=== PATIENT | female | born 1940 | race Caucasian/White ===

== ENCOUNTER 2016-12-14 00:45 | Day surgery (SDC) | payer MEDICARE, OTHER ==
[2016-12-14] VITALS (14 sets, daily range): BP systolic 111–166; BP diastolic 63–84; PULSE 72–81; RESP 12–22; O2SAT 93–100
[~2016-12-14] VITALS: Ht 170.2 cm; Wt 75.0 kg
[~2016-12-14 00:45] MED LIST: CYA1000I IM; HYDR25TA4 PO; KEN25CR EXT; LACT1CAP65 PO; LISI10TA2 PO; SCOP1PAT TD
[2016-12-14] MEDS ORDERED: 0.9% Sodium Chloride 1,000 ML IV SCH (06:00)
[2016-12-14] MEDS ORDERED: CeFAZolin Inj 2 GM in IV Premix 1 EACH IV SCH (06:00)
[2016-12-14 06:31] LABS: BASOPHILS % (AUTO) 1.4 % (0-3); EOSINOPHILS % (AUTO) 2.9 % (0-5); MONOCYTES % (AUTO) 11.8 % (4-12); Mean Corpuscular Hemoglobin 30.9 pg (27.0-35.0); Mean Corpuscular Volume 93.7 fL (81-100); NEUTROPHILS % (AUTO) 70.9 % (40-74); Platelet Count 357 bil/L (150-400)
[2016-12-14 07:00] LABS: INR 0.99 ratio
[2016-12-14] MEDS ORDERED: ALBU8.5H2 INHALATION (07:03)
[2016-12-14] MEDS ORDERED: METO25TA99 PO (07:03)
[2016-12-14] MEDS ORDERED: Heparin 10,000 Unit/1,000 mL NS Premix IV ONE (07:45)
[2016-12-14] MEDS ORDERED: Bupivacaine-MPF 0.5% 30 mL Inj ONE (07:45)
[2016-12-14] MEDS ORDERED: 0.9% Sodium Chloride 250 ML ONE ×2 (07:45→16:31)
[2016-12-14] MEDS ORDERED: KCl 40 mEq/500 mL D5W(K 3 - 3.7 & Creat < 2) IV ONE (08:10)
[2016-12-14] MEDS ORDERED: fentaNYL-PF 50 mCg/mL 2 mL Inj ONE ×3 (08:14→09:29)
[2016-12-14] MEDS: 0.9% Sodium Chloride 1,000 ML IV SCH ×2 (10:07→20:07)
--- NOTE | 2016-12-14 11:03 | OP ---
[address] [address] OPERATIVE REPORT PATIENT: KIARA MEJÍA : 1940 MR#: [id number] ADMIT: 12/14/2016 JOB ID: [id number] DATE OF SURGERY: 12/13/2016 PREOPERATIVE DIAGNOSIS(ES): 1. Mobitz II atrioventricular block. 2. Syncope. 3. Implantable loop recorder in place. POSTOPERATIVE DIAGNOSIS(ES): 1. Mobitz II AV block. 2. Syncope. 3. Implantable loop recorder in place. PROCEDURES PERFORMED: 1. Dual-chamber pacemaker implantation. 2. Cardiac loop recorder explantation. 3. Fluoroscopy. SURGEON: Mike Dias MD STRATEGIC ACCOUNT EXECUTIVE: IMPLANTED DEVICE: 1. [employer] pulse generator, model , serial number [id number]. 2. Right atrial lead [employer], [id number] 46 cm, serial number [id number]. 3. RV lead [employer], [id number] 52 cm, serial number [id number]. ANESTHESIA: Bolus dosing of Versed and fentanyl were utilized for an appropriate level of sedation. INDICATION: The patient is a pleasant 76-year-old woman with a structurally normal heart, had recurrent syncope and ultimately a loop recorder was implanted. A recent repeat episode of syncope was identified to be due to intermittent heart block. After discussion of risks and benefits of pacemaker implantation, she opted to proceed. PROCEDURAL DESCRIPTION: Following informed consent, the patient was taken to the EP laboratory in a fasting nonsedated state, where she was prepped and draped in the usual sterile fashion. The left infraclavicular region was infiltrated with 40 cc of a 50/50 mixture of bupivacaine and lidocaine. Once adequate anesthesia had been achieved, a 3 cm transverse incision was performed 2 cm below the clavicle. Dissection was carried down to the pectoralis fascia. The pocket was then fashioned using a combination of electrocautery and blunt dissection. Once adequate hemostasis had been achieved, access to the left axillary vein first two 0.035, 3 mm J guidewires. Over the first of these, an 8-[place]eg[place]e tear-away sheath was advanced. Once the guidewire was removed, active fixation lead was advanced to the RV outflow tract and ultimately the RV apex. The lead was affixed in position using associated fixation screw and was connected to the external analyzer and demonstrated appropriately sensed R waves, impedance and capture threshold. The lead was checked to 10 V and there was no evidence of diaphragmatic stimulation. Attention was now paid to placement of the right atrial lead. Over the other previously deployed J guidewire, another 8-[place] tear-away sheath was advanced. Once the guidewire was removed, an active fixation lead was inserted to atrial appendage. Mapping was undertaken in the appendage and ultimately positioned in the right lateral low right atrium was needed for adequate sensing and threshold. The lead was fixed in position using its associated active fixation screw and was connected to the external analyzer and demonstrated appropriately sensed P waves, impedance, capture threshold. Lead was checked to 10 V and there was no evidence of diaphragmatic stimulation. Once the position and redundancy of both leads confirmed on multiple fluoroscopic views, the leads were anchored to the prepectoralis fascia using their associated anchoring sleeves and 2-0 Ethibond sutures. The pocket was copiously irrigated with antibiotic solution. The leads were connected to a generator. The generator was placed in the pocket and was affixed to the floor of the pocket using 1-0 Ti-Cron suture. The incision was closed with running layers of absorbable suture. The wound was then dressed with skin adhesive and a small dressing at the end of procedure. The needle, sponge, and instrument counts were all correct. I then infiltrated the region overlying the loop recorder which was a small link loop recorder, made a small 0.5 cm incision and was able to free loose scar tissue and externalize and explant the loop recorder with manual pressure hemostasis. COMPLICATIONS: None. ESTIMATED BLOOD LOSS: Negligible. DEVICE MEASURED DATA: 1. Right atrial lead greater than 5 mV, 0.75 V at 0.4 msec, 530 ohms. 2. RV lead greater than 12 mV, 0.5 V at 0.4 msec, 740 ohms. FINAL PROGRAM PARAMETERS: DDD 60-130 beats per minute with VIP on. IMPRESSION: Successful dual-chamber pacemaker implantation and loop recorder explantation. PLAN: 1. Stat portable chest x-ray. 2. PA and lateral chest x-ray in the morning. 3. Device interrogation in the morning. 4. IV Ancef through tomorrow 7 days. 5. Wound check in one week. ATTENDING STATEMENT: IMike MD, electrophysiology attending, was present for and supervised/performed all aspects of this procedure.
--- NOTE | 2016-12-14 11:30 | DRSVH ---
PROCEDURE: X-RAY CHEST ONE VIEW, PORTABLE ([id number]) INDICATIONS: For new leads placed TECHNIQUE: One view of the chest was acquired. COMPARISON: None. FINDINGS: Surgical changes and devices: Left-sided cardiac pacer. Lungs and pleura: No pleural effusions or pneumothorax. Lungs are clear. Mediastinum: Mediastinal contours appear normal. Heart size is normal. Bones and chest wall: No suspicious bony lesions. Overlying soft tissues appear unremarkable. IMPRESSION: Dual-lead left-sided cardiac pacer with expected position of pacer leads. No radiographic evidence of acute cardiopulmonary pathology. Dictated by: Kyle Joe M.D. on 12/14/2016 at 11:26 Approved by: Kyle Joe M.D. on 12/14/2016 at 11:29
--- NOTE | 2016-12-14 11:55 | NUR ---
Patient c/o right sternal border ache radiating to right clavicle and right neck. Dr Dias notified and order obtained for limited echocardiogram.
[2016-12-14] MEDS: HYDROcodone-APAP 5-325 mg Tablet PO PRN ×3 (12:32→21:03)
--- NOTE | 2016-12-14 12:33 | NUR ---
Gaurav Carrera has interrogated patient's pacemaker and present during stat echo. Pacemaker function is appropriate and echo is negative for effusion.He has communicated that to Dr. Dias.Vicodin 2 tabs given fro pain.
--- NOTE | 2016-12-14 13:03 | DRSVH ---
[facility] [address] [place] [address] Echocardiogram Report Name: KIARA MEJÍA Date : 12/14/2016 Height: 67 in Hospital Exam Location: [facility] Weight: 165 lb Gender: Other BSA: 1.9 m2 : 1940 Age: 76 yrs BP: 134/68 mmHg Reason For Study: R/O PERICARDIAL EFFUSION Ordering Physician: Performed By: Wang Guadarrama Interpretation Summary The left ventricle is grossly normal size and systolic function is probably normal. The right ventricle grossly appears normal in size with probable normal systolic function. There is no pericardial effusion. The IVC is normal and suggests a low right atrial pressure of 3 mm Hg. Procedure: A two-dimensional transthoracic echocardiogram with color flow and Doppler was performed in limited views only. The study quality was technically adequate. There is no prior echocardiogram noted for this patient. The patient was in normal sinus rhythm during the exam. Left Ventricle: The left ventricle is grossly normal size. Left ventricular systolic function is probably normal. Right Ventricle: The right ventricle grossly appears normal in size with probable normal systolic function. Great Vessels: The IVC is of normal diameter and collapses greater than 50% with a sniff. This suggests a low right atrial pressure of 3 mm Hg. Pericardium/ Pleura There is no pericardial effusion. Reading Physician:01:03 PM
--- NOTE | 2016-12-14 13:17 | NUR ---
Dr wooten here to see patient.Patient is much more comfortable.Potassium infusion completed.I had slowed it down to 100cc/hr because of slight discomfort at IV site.
--- NOTE | 2016-12-14 13:34 | DRSVH ---
PROCEDURE: X-RAY CHEST ONE VIEW, PORTABLE ([id number]) INDICATIONS: dyspnea after pacer implant TECHNIQUE: One view of the chest was acquired. COMPARISON: [facility], CR, XR CHEST 1VW (PORTABLE), 12/14/2016, 10:31. FINDINGS: Surgical changes and devices: Left chest wall dual-lead pacemaker is stable in position. Lungs and pleura: No pleural effusions or pneumothorax. Lungs are clear. Mediastinum: Mediastinal contours appear normal. Heart size is normal. Bones and chest wall: No suspicious bony lesions. Overlying soft tissues appear unremarkable. IMPRESSION: 1. No evidence of pneumothorax or other acute cardiopulmonary disease. Dictated by: Alfa Sierra M.D. on 12/14/2016 at 13:16 Approved by: Alfa Sierra M.D. on 12/14/2016 at 13:33
--- NOTE | 2016-12-14 13:45 | NUR ---
Report called to Sonja Wiggins R.N and pt transferred in bed in stable condition. Chest discomfort resolving after vicodin P.O.Pt's left arm in arm sling for tx.Handoff on 3rd floor to nurse Feliciano.
--- NOTE | 2016-12-14 16:47 | NUR ---
Arrival to [facility] Pt AOX3. Left arm in sling. Dressing C/D/I. Tele SR 70's. Pt reports of chest pain on inspiration. PRN [place] provided for pain. Diane.Rosa aware. ECHO was done prior to her transfer up to rule out effusion and will be repeated again tomorrow 12/15. Pt has steady gait. No reports of dizziness. Care ongoing.
[2016-12-14] MEDS: CeFAZolin Inj 1 GM in IV Premix 1 EACH IV SCH (17:07)
--- NOTE | 2016-12-14 20:30 | NUR ---
Chest pain PT complaining of sterna chest pain only with deep breathing, no complaints of SOB and lungs are clear throughout on auscultation. Will continue to monitor overnight, PT scheduled for another ECHO and CXR in the AM.
[2016-12-14] MEDS ORDERED: Albuterol 2.5 mg/3 mL Inhalation Solution NEB PRN (20:40)
[2016-12-14] MEDS: MeTOProlol XL 25 mg ER24 Tablet PO SCH (21:21)
[2016-12-15 00:42] VITALS: BP 123/80; PULSE 76; RESP 18; O2SAT 96
[2016-12-15] MEDS: CeFAZolin Inj 1 GM in IV Premix 1 EACH IV SCH (00:50)
[2016-12-15] MEDS: HYDROcodone-APAP 5-325 mg Tablet PO PRN (00:55)
--- NOTE | 2016-12-15 05:05 | NUR ---
Chest pain PT had chest pain with deep breathing throughout the night, [place] gave her ample pain control so she was able to sleep, no complaints of SOB.
[2016-12-15 05:51] VITALS: PULSE 81
[2016-12-15] MEDS: 0.9% Sodium Chloride 1,000 ML IV SCH (06:07)
[2016-12-15 06:09] VITALS: BP 117/77; PULSE 74; RESP 18; O2SAT 94
[2016-12-15] MEDS: Ondansetron 2 mg/mL 2 mL Inj IVPUSH PRN ×2 (08:39→11:28)
[2016-12-15] MEDS: MeTOProlol XL 25 mg ER24 Tablet PO SCH (08:40)
--- NOTE | 2016-12-15 09:03 | DRSVH ---
PROCEDURE: X-RAY CHEST, TWO VIEWS ([id number]) INDICATIONS: For new lead placement TECHNIQUE: 2 views of the chest were acquired. COMPARISON: [facility], CR, XR CHEST 1VW (PORTABLE), 12/14/2016, 10:31. FINDINGS: Surgical changes and devices: Left-sided pacer. Lungs and pleura: No pleural effusions or pneumothorax. Slight increase in right medial basilar airs pace density. Mediastinum: Mediastinal contours are normal. Heart size is normal. Bones and chest wall: No suspicious bony abnormalities. Soft tissues appear unremarkable. IMPRESSION: 1. Mild right basilar atelectasis versus pneumonia. Dictated by: Natalie Astorga M.D. on 12/15/2016 at 9:01 Approved by: Natalie Astorga M.D. on 12/15/2016 at 9:01
--- NOTE | 2016-12-15 10:26 | DRSVH ---
[facility] [address] [place] [address] Echocardiogram Report Name: KIARA MEJÍA Date : 12/15/2016 Height: 67 in Hospital Exam Location: [facility] Weight: 165 lb Gender: Other BSA: 1.9 m2 : 1940 Age: 76 yrs BP: 117/ 77 mmHg Reason For Study: R/O EFFUSION Ordering Physician: ALYSA MAHONEY Performed By: Candy Mccullough Referring Physician: Dr. Kash Quarles Interpretation Summary There is a trivial pericardial effusion noted in parasternal and short axis views (New). There are no echocardiographic indications of cardiac tamponade. The IVC is of normal diameter and collapses greater than 50% with a sniff. This suggests a low right atrial pressure of 3 mm Hg. There is an anterior echo-free space consistent with a fat pad as well. Procedure: The study quality was technically limited. Comparison is made with the echocardiogram of 12/14/16. The patient was in normal sinus rhythm during the exam. Right Ventricle: There is a pacemaker lead in the right ventricle. Great Vessels: The IVC is of normal diameter and collapses greater than 50% with a sniff. This suggests a low right atrial pressure of 3 mm Hg. Pericardium/ Pleura There is a trivial pericardial effusion noted. There are no echocardiographic indications of cardiac tamponade. There is an anterior echo-free space consistent with a fat pad. There is no pleural effusion. MMode/2D Measurements & Calculations IVC diam: 1.9 cm Reading Physician:OSEI
--- NOTE | 2016-12-15 10:27 | PCM.DIMED ---
Discharge Instructions Date of Service Dec 15, 2016 Dates of Hospitalization Discharge Diagnosis Discharge Diagnosis Syncope Intermittent Complete Heart Block PSVT Diet Discharge Diet: No restrictions Activity Discharge Activity: Other (Keep incision dry one day. Do not extend left elbow high above shoulder for one month. Do not lift, push or pull more than 10 lbs for one month.) Call your provider Call your provider for: Fever or Chills, Bleeding, Excessive diarrhea Patient Instructions Follow-up in: 1 week Mid-level Provider (F9): Gaurav Silverman PA-C Follow-up with Mid-level in: 6 weeks Gaurav Silverman PA-C Dec 15, 2016 10:27
[2016-12-15 10:56] VITALS: PULSE 73
[2016-12-15] MEDS ORDERED: CEPH500C PO (11:07)
[2016-12-15] MEDS ORDERED: HYDR-4003 PO (11:08)
[2016-12-15 11:36] VITALS: PULSE 73
[2016-12-15 13:21] VITALS: BP 129/82; PULSE 78; RESP 16; O2SAT 95
--- NOTE | 2016-12-15 13:38 | DIS ---
[address] [address] DISCHARGE SUMMARY PATIENT: KIARA MEJÍA : 1940 MR#: [id number] ADMIT: 12/14/2016 JOB ID: [id number] DIS: 12/15/2016 REASON FOR ADMISSION: Pacemaker implant. CHIEF COMPLAINT: Syncope. BRIEF HISTORY: The patient is a pleasant 76-year-old woman with a structurally normal heart who has had infrequent episodes of syncope over the past few years. She was fitted with an implantable ECG loop recorder a couple of years ago and did well until just recently when she was serving a dinner constitution party and had syncope at home. The recorder documented intermittent complete heart block at the time of syncope. She was advised of this finding and was admitted for pacemaker implant. COURSE IN HOSPITAL: The patient was admitted to the [facility] and taken to the catheter finisher and inspector, where she received the dual-chamber pacemaker without incident. She was transferred back to the [facility] for recovery from sedation. After the portable chest x-ray was made, maybe an hour later, she began to have right-sided chest discomfort that radiated to her right scapula. BP remained stable, the evaluation of the pacemaker showed good electrical parameters for capture and sensing. A limited echocardiogram was performed and there was no pericardial effusion. Her discomfort persisted and was made worse with deep inspiration. Auscultation revealed good breath sounds in both right and left lung saleh. She was given some pain medication and improved. Then she was taken up to the [facility] for overnight care. She did require pain medication during the evening and night. In the morning she was feeling better although still has some of the discomfort. Repeat echocardiogram in the morning showed no pericardial effusion. Repeat analysis of the pacing system showed excellent capture and sensing thresholds for both leads. Chest x-ray showed good lead positions and no pneumothorax. She felt well for discharge home. The pacemaker site was closed and dry and there was no hematoma. DISPOSITION: The patient was discharged home in good condition with a follow up appointment at the [facility] office in one week. She was advised not to extend her left elbow above her shoulder for one month and not to lift, push or pull more than 10 pounds with the left arm for one month. He was also advised to take ibuprofen for its anti-inflammatory affect to hopefully resolve the chest discomfort. DISCHARGE MEDICATIONS: 1. Cephalexin 500 mg b.i.d. for one week. 2. Hydrocodone/acetaminophen 5/325 mg tablets one q.4 hours p.r.n. pain, quantity 20 with no refills. 3. Albuterol inhaler, 2 puffs q.4 hours p.r.n. 4. Cyanocobalamin 1000 mcg injection every two months. 5. Hydrochlorothiazide 25 mg daily. 6. Probiotic 1 capsule daily. 7. Lisinopril 10 mg daily. 8. Metoprolol succinate 25 mg b.i.d. 9. Scopolamine transdermal patch 1 daily as needed. 10. Finally triamcinolone acetonide cream applied topically as needed. FINAL DIAGNOSES: 1. Syncope, intermittent complete heart block. 2. Dual-chamber pacemaker implanted on December 14, 2016.
--- NOTE | 2016-12-15 14:08 | NUR ---
Discharge Patient discharged with to private vehicle to home. Went through all discharge paperwork, including 2 new prescriptions and 2 follow up appointments. Answered all questions.
== END 2016-12-15 14:00 | disposition home or self-care (01) ==
LOC: SOUO 00:45 → MPC 13:41 → SOUO 12-15 14:00
PROVIDERS: ATTEND Internal Medicine Cardiovascular Disease
DX: I44.2 Atrioventricular block, complete (principal); R07.89 Other chest pain; I44.1 Atrioventricular block, second degree; R55 Syncope and collapse; I47.1 Supraventricular tachycardia
CPT/HCPCS: 33208; 33284; 36415; 71010; 71020; 80048; 85025; 85610; 93005; 99152; 99153; C1769; C1785; C1892; C1898; C8924; J0690; J1644; J2250; J2405; J3010; J3480; J7050